=== PATIENT | female | born 1965 | race African-American/Black ===

== ENCOUNTER 2023-10-28 17:33 | Emergency (ER) | payer OTHER, SELFPAY ==
[2023-10-28 17:34] VITALS: BP 147/87
--- NOTE | 2023-10-28 18:01 | ED.MUSCINJ ---
HPI-Injury
General
Chief Complaint: Musculo-Skeletal Complaint
Source: patient
Exam Limitations: none
Time Seen by Provider: 10/28/23 17:40
Nursing documentation reviewed up to this point in time: agreed with
Travel History
Have you had any contact with someone who has COVID-19?: No
Do you have any symptoms of coronavirus? Fever > 100 degrees, chills, cough, shortness of breath, sore throat, loss of taste or smell, muscle aches, or headache?: No
History of Present Illness-Injury
Is this injury a work related problem?: No
Is pt an associate of [facility]?: No
Initial Injury comments:
States she attempted to 'flick' an insect off her finger and immediately developed pain to MCP joint #3 left hand. Able to make a fist but reports increased effort to straighten 3rd finger. Injury occurred yesterday.
Past History
Past History
ED Past Medical History: None
ED Past Surgical History: None
Social History
Tobacco: Non-smoker
Review of Systems
Review of Systems
Allergies reviewed?: Yes
All Other Systems: ROS reviewed and negative except as documented in HPI and ROS
Constitutional: Reports no symptoms
Musculoskeletal: Reports joint pain (Pain to left 3rd MCP joint. Increased effort to straighten left 3rd finger)
Skin: Reports no symptoms
Neurological: Reports no symptoms
Psychiatric: Reports no symptoms
Musculoskeletal Injury Exam
Musculoskeletal Injury Exam
Left 3rd MCP joint:
Pain with Movement?: Moderate
Tender to palpation?: Moderate
Soft tissue swelling?: Mild
External deformity and angulation?: None
Joint effusion?: None
Contusion?: None
Hematoma-local bleeding into tissue?: None
Strain- Sprain- Tear (Connective tissue injury)?: Moderate
Crepitus with movement?: No
Joint instability?: No
Malalignment/deformity?: No
Range of motion: Full
Distal skin color and temperature: normal-warm & good color
Capillary Refill: normal
Normal distal neurovascular exam?: Yes
Phy Exam
General Physical Exam
General Presentation: well appearing and no apparent distress
General age: appears stated age
General Skin: warm and dry
General Habitus: normal
Musculoskeletal Exam
Musculoskeletal Exam: neuro vasc intact
Skin Exam
Skin Exam: normal color, warm/dry and no rash
Psychiatric Exam
Psychiatric Exam: normal mood/affect
Injury Course
Orders/Labs/Results
Orders:
Orders
10/28/23 17:37
Hand, Left 3 View [CR Hand - Left Min 3 Views] Urgent
Comment:
Reason For Exam: pain
10/28/23 17:57
Aluminium Finger Splint Left ONCE
*Radiology
Radiology exam reviewed: radiology read reviewed
*Pulse Oximetry
Patient hypoxic: no
*Critical Care Note
Total Time (30-74mins, 75-104mins- exclusive of procedures): Not Applicable
Update Note
Update Note:
Increaced effort to straighten 3rd finger at MCP joint. No endon defect palpated or visualized. Will place in splint. Recommend follow up with orthopedics this week. Discussed with patient and she is agreeable to plan.
ED Attending Note
-
Portions of this chart may have been created with voice recognition software.� Occasional wrong word or��sound alike� substitutions may have occurred due to the inherent limitations of voice recognition software.
Discharge Plan
Departure
Patient Disposition: Home (Routine Discharge)
Date of Disposition: 10/28/23
Time of Disposition: 17:58
Patient with high blood pressure during this ER visit?: No
Condition: Good
Covid-19: Not Applicable
Discharge Problem:
Injury of extensor tendon of hand
Instructions: Sprain (DC), Ibuprofen, Using Cold for Pain
Prescriptions:
No Action
naproxen sodium [Aleve] 220 MG tablet
220 mg PO PRN PRN (Reason: cramps)
acetaminophen [Tylenol] 325 MG capsule
650 mg PO Q4HPRN PRN (Reason: pain)
Referrals:
Daren Coleman MD [Active] - Call in 1-3 days for appt
Jose R Gilmore MD [Family Provider] -
Activity Restrictions/Additional Instructions:
Wear finger splint until discontinued by orthopedic provider. Follow up with orthopedics this week for further evaluation of the extensor tendon of your hand.
Interventions
Interventions:
*ED COVID-19 Vaccine History Last Done: 10/28/23 17:34
Discharge Date and Time
Print Language: AMHARIC
== END 2023-10-28 18:17 | disposition home or self-care (01) ==
LOC: EMR 17:33
PROVIDERS: EMERGENCY PHYSICIAN Emergency Medicine; FAMILY PHYSICIAN Internal Medicine Geriatric Medicine
DX: S66.309A Unspecified injury of extensor muscle, fascia and tendon of unspecified finger at wrist and hand level, initial encounter (principal); X50.1XXA Overexertion from prolonged static or awkward postures, initial encounter
CPT/HCPCS: 99283; 29130; 73130

== ENCOUNTER → 2025-02-09 09:47 | Outpatient (REF) | payer OTHER, SELFPAY ==
[2025-02-09 11:23] LABS: Hematocrit 38.3 % (37.0-47.0); Hemoglobin 13.1 g/dL (12.0-16.0); Mean Corp Hgb Conc. 34.2 g/dL (33.0-37.0); Mean Corpuscular Volume 87.2 fL (81.0-99.0); Nucleated Red Blood Cells % 0 %; Platelet Count 194 10^3/uL (130-400); Red Cell Dist. Width 13.8 % (11.5-14.5)
[2025-02-09 11:24] LABS: APTT 32.6 Sec (23.4-35.0); INR 0.98; PT 13.3 Sec (11.4-14.6)
[2025-02-09 11:39] LABS: ALT (SGPT) 30 U/L (0-35); AST (SGOT) 27 U/L (14-36); Albumin 4.5 g/dl (3.5-5.0); Alkaline Phosphatase 113 U/L (38-126); Blood Urea Nitrogen 16 mg/dl (7-17); Calcium 9.9 mg/dl (8.4-10.2); Carbon Dioxide 27 mmol/L (22-30); Chloride 105 mmol/L (98-107); Glucose 73 mg/dl (70-99); Potassium 3.9 mmol/L (3.5-5.1); Sodium 137 mmol/L (135-145); Total Protein 6.9 g/dl (6.3-8.2); eGFR > 60.00
== END ==
LOC: REG 09:47
PROVIDERS: ATTENDING PHYSICIAN Orthopaedic Surgery Orthopaedic Surgery of the Spine; FAMILY PHYSICIAN Nurse Practitioner Family
DX: Z01.818 Encounter for other preprocedural examination (principal); M54.12 Radiculopathy, cervical region
CPT/HCPCS: 36415; 80053; 85025; 85610; 85730; 86900; 86901; 93005

== ENCOUNTER 2025-02-20 05:47 | Day surgery (SDC) | payer OTHER, SELFPAY ==
[2025-02-20] VITALS (11 sets, daily range): BP systolic 121–140; BP diastolic 69–90; BMI 27.9
[2025-02-20] MEDS: LYRICA 150 MG PO (06:27)
[2025-02-20] MEDS: CELEBREX 200 MG PO (06:27)
[2025-02-20] MEDS: METHOCARBAMOL 1500 MG PO (06:27)
[2025-02-20] MEDS: TYLENOL 1000 MG PO ×2 (06:28→11:57)
[2025-02-20] MEDS: NORMOSOL-R/PLASMALYTE-A 1000 IV (06:37)
[2025-02-20] MEDS: DILAUDID 0.5 MG IV ×2 (09:27→09:46)
[2025-02-20] MEDS: ZOFRAN 4 MG IV (12:11)
== END 2025-02-20 12:55 | disposition home or self-care (01) ==
LOC: SDS 05:47
PROVIDERS: ATTENDING PHYSICIAN Orthopaedic Surgery Orthopaedic Surgery of the Spine; FAMILY PHYSICIAN Nurse Practitioner Family
DX: M48.02 Spinal stenosis, cervical region (principal); M54.12 Radiculopathy, cervical region
CPT/HCPCS: 22551; 22552; 22853; 20930; C1776; 72020; C1713